=== PATIENT | female | born 1990 | race Caucasian/White ===

== ENCOUNTER 2024-09-10 16:36 | Inpatient (IN) | payer OTHER, SELFPAY ==
--- OUTSIDE RECORDS SUMMARY | 2020-10-27 20:00 | XMS_ITS | Continuity of Care Document ---
Author Organization [facility] Address [address] [facility] [address] [place] [address] Phone Care Team Providers Care Instrumentation Instructor Name Role Phone Eda Abel MD Unavailable Unavailable Advance Directives Directive Yes / No Effective Date File Name No Information Encounters Encounter Description Practice Location Reason(s) For Visit Diagnoses Date Provider Providers Copied on Encounter [facility], [address], [id number], tel:[phone] [facility] Hypermobility syndrome [address] [facility], [address], [place], [id number] , [place]. [phone] [facility], [address] [facility] [address] [place] [address], [id number], tel:[phone] [facility] Pain in unspecified joint [address] [facility], [address], [place], [id number] , [place]. tel:[phone] Family History Family Member Type Diagnosis Age At Onset No Information Payers Payer name Insurance type Covered republican ID Authoriza tion(s) No Information Social History Type Description Quantity Date Captured Comments Sex Female Smoking Status No Information Chief Complaint And Reason For Visit No Information Reason For Referral Reason For Referral No Information History Of Present Illness Encounter Date Complaint History Of Prese nt Illness No Information Functional Status Date Functional Assessmen t No Information Instructions Date Instruction Additional Infor mation No Information Assessments Type Assessment Date No Information Patient Care Teams Name Effective Dates (start - stop) Status Members No Information
--- OUTSIDE RECORDS SUMMARY | 2024-09-10 16:50 | XMS_ITS | Clinical Summary ---
Author Organization [facility] Address [address] [place] [address] Phone Care Team Providers Care Sand Blaster Name Role Phone Temitope Frazier Primary Care Provider + Allergies Active Allergy Reactions Criticality Noted Date Comments Amoxicillin Hives 03/29/2022 Ciprofloxacin Cough,Hives 03/29/2022 Cortisone Hives 04/24/2019 Other Reaction(s): Unknown Gluten Meal Hives 11/16/2023 Patient reports Celiac Disease Hydrocortisone Hives 11/16/2023 Medications apixaban (ELIQUIS) 5 MG tablet Take 5 mg by mouth two times a day Active DULoxetine (CYMBALTA) 60 MG capsule Take 60 mg by mouth two times a day Active budesonide-form oterol (SYMBICORT) 80-4.5 MCG/ACT inhaler Inhale 2 puffs two times a day as needed Rinse mouth with water after use. Do not swallow. Active atorvastatin (LIPITOR) 20 MG tablet Take 20 mg by mouth daily Active empagliflozin (Jardiance) 10 MG tablet Take 10 mg by mouth daily Active metFORMIN (GLUCOPHAGE) 500 MG tablet Take 500 mg by mouth two times a day Active glycopyrrolate (ROBINUL) 2 MG tablet Take 2 mg by mouth every morning Active ziprasidone (GEODON) 80 MG capsule Take 80 mg by mouth two times a day Active modafinil (PROVIGIL) 200 MG tablet Take 400 mg by mouth daily Active Cariprazine HCl (Vraylar) 1.5 MG capsule Take 1.5 mg by mouth every evening Active valACYclovir (VALTREX) 500 MG tablet Take 500 mg by mouth every evening Active SUMAtriptan (IMITREX) 100 MG tablet Take 100 mg by mouth once as needed for migraine Active cyclobenzaprine (FLEXERIL) 10 MG tablet Take 10 mg by mouth three times a day as needed for muscle spasms Active metaxalone (SKELAXIN) 800 MG tablet Take 800 mg by mouth three times a day as needed Active Coenzyme Q10 (Co Q10) 200 MG capsule Take 200 mg by mouth every morning Active Multiple Vitamins-Minera ls (CENTRUM WOMEN PO) Take 1 tablet by mouth every morning Active CALCIUM-VITAMIN D-VITAMIN K PO Take by mouth every morning Active Turmeric (QC TUMERIC COMPLEX PO) Take 1 tablet by mouth every morning Active Turmeric (QC TUMERIC COMPLEX PO) Take 2 tablets by mouth every evening Active folic acid (Folate) 400 MCG tablet Take 400 mcg by mouth two times a day Active PREBIOTIC PRODUCT PO Take 2 capsules by mouth every evening Active Probiotic Product (PROBIOTIC PO) Take 1 capsule by mouth every evening Active MAGNESIUM GLYCINATE PO Take 400 mg by mouth every morning Active Benfotiamine 150 MG capsule Take 300 mg by mouth every evening Active propranolol LA (INDERAL LA) 120 MG 24 hr capsule Take 120 mg by mouth daily Active fenofibrate (TRICOR) 145 MG tablet Take 145 mg by mouth nightly Active Active Problems Problem Noted Date Diagnosed Date Bipolar disorder, unspecified 01/04/2024 Right arm cellulitis 12/15/2023 Social History Tobacco Use Types Packs/Day Years Used Date Smoking Tobacco: Never Smokeless Tobacco: Never Tobacco Cessation:Counseling Given: Not Answered Comments Unknown Sex and Gender Information Value Date Recorded Sex Assigned at Not on file Legal Sex Female 6:53 PM EDT Gender Identity Not on file Sexual Orientation Not on file Last Filed Vital Signs Vital Sign Reading Time Taken Comments Blood Pressure 99/66 01/03/2024 9:19 PM EST Pulse 72 01/03/2024 9:19 PM EST Temperature 37.4 C (99.4 F) 01/03/2024 5:58 PM EST Respiratory Rate 18 01/03/2024 9:19 PM EST Oxygen Saturation 96% 01/03/2024 11:21 PM EST Inhaled Oxygen Concentration - - Weight 96.6 kg (213 lb) 01/03/2024 1:49 PM EST Height 160 cm (5' 3 ) 01/03/2024 1:49 PM EST Body Mass Index 37.73 01/03/2024 1:49 PM EST Plan of Treatment Health Maintenance Due Date Last Done Comments [facility] Topic HIV Screening 1989 [facility] Topic Tdap Vaccine (1 - Tdap) 2008 [facility] Topic Cervical Cancer Screening 2019 [facility] Topic Influenza (Flu) Seasonal (#1) 2024 [facility] Topic Lipid Profile 5 years 11/07/2028 11/08/2023, 11/08/2023 [facility] Topic Shingrix (1 of 2) 2039 [facility] Topic Hepatitis C Screening Completed 11/08/2023 [facility] Topic HIB Vaccines Aged Out No longer eligible based on patient's age to complete this topic [facility] Topic HPV Vaccines Aged Out No longer eligible based on patient's age to complete this topic Insurance [address] [place], [place] [address]O [facility] Advance Directives For more information, please contact: [phone] * Full Code (Latest Code Status on File) Date Activated Date Inactivated Comments 12/15/2023 9:34 AM 12/18/2023 5:50 PM Question Answer Comments Cardiopulmonary Resuscitatio n: for a patient in cardiac or respiratory arrest (Full Code = Attempt Resuscitation, DNR = Do not attempt resuscitation): Full Code Ventilation: for a patient in respiratory distre ss: Intubate and Ventilate Care Teams Sand Blaster Relationship Specialty Start Date End Date Temitope Frazier [address] [place] [id number] PCP - General Internal Medicine 12/14/23
--- OUTSIDE RECORDS SUMMARY | 2024-09-10 16:50 | XMS_ITS | Clinical Summary ---
Author Organization [facility] Address [address] [facility] [address] [place] [address] Phone Care Team Providers Care Marble Cutter Operator Name Role Phone Marcus Rothman Aurelia SENIOR PAYROLL ADMINISTRATOR Unavailable [phone] Temitope Frazier MD Primary Care Provide r Allergies Active Allergy Reactions Criticality Noted Date Comments Amoxicillin Hives 11/16/2023 Ciprofloxacin Hives 11/16/2023 Hydrocortisone Hives 11/16/2023 Medications atorvastatin (LIPITOR) 20 MG tablet Take 20 mg by mouth daily. Active empagliflozin (JARDIANCE) 10 mg tablet Take 10 mg by mouth daily. Active apixaban (ELIQUIS) 5 mg tablet Take 5 mg by mouth 2 (two) times a day. Active fenofibrate (TRICOR) 145 MG tablet Take 145 mg by mouth daily. Active DULoxetine (CYMBALTA) 60 MG capsule Take 60 mg by mouth daily. Active modafiniL (PROVIGIL) 200 MG tablet Take 200 mg by mouth daily. Active glycopyrrolate (ROBINUL) 1 mg tablet Take 2 mg by mouth 3 (three) times a day. Active metFORMIN (GLUCOPHAGE) 500 MG tablet Take 500 mg by mouth 2 (two) times a day with meals. Active ziprasidone (GEODON) 80 MG capsule Take 80 mg by mouth 2 (two) times a day with meals. Active busPIRone (BUSPAR) 5 MG tablet Take 5 mg by mouth 2 (two) times a day. 01/08/2024 Active doxycycline hyclate (VIBRAMYCIN) 100 MG capsule Take 100 mg by mouth daily. 01/13/2024 Active Active Problems No known active problems Social History Tobacco Use Types Packs/Day Years Used Date Smoking Tobacco: Every Day Cigarettes Smokeless Tobacco: Never Tobacco Cessation:Ready to Q uit: Not Asked; Counseling Given: Not Answered Alcohol Use Standard Drinks/Week Comments Yes 0 (1 standard drink = 0.6 oz pur e alcohol) Education Answer Date Recorded Are you interested in more education? Not on paco e 11/16/2023 Are you concerned about learning? Not on file 11/16/2023 No 11/16/2023 No 11/16/2023 Digital Access Answer Date Recorded No 11/16/2023 No 11/16/2023 Reliable internet access at home? Not on file 11/16/2023 Device with a working camera? Not on file Intimate Partner Violence Answer Date R ecorded Are you denied basic needs s uch as food, clothing, or medical care? No 12/23/2023 In the past 12 months have y ou been in a relationship with a person who hurts, threatens, or tries to control you? No 12/23/2023 Are you denied basic needs s uch as food, clothing, or medical care? No 12/23/2023 In the past 12 months have y ou been in a relationship with a person who hurts, threatens, or tries to control you? No 12/23/2023 Comments No Sex and Gender Information Value Date Recorded Sex Assigned at Female 11/18/2023 7:55 AM EDT Legal Sex Female 2:22 PM EDT Gender Identity Female 11/16/2023 2:34 PM EDT Sexual Orientation Bisexual 11/18/2023 7: 55 AM EDT Last Filed Vital Signs Vital Sign Reading Time Taken Comments Blood Pressure 100/64 12/23/2023 8:17 PM EST Pulse 74 12/23/2023 8:17 PM EST Temperature 36.8 C (98.3 F) 12/23/2023 4:54 PM EST Respiratory Rate 15 12/23/2023 8:17 PM EST Oxygen Saturation 99% 12/23/2023 8:17 PM EST Inhaled Oxygen Concentration - - Weight 97.5 kg (215 lb) 11/16/2023 2:39 PM EDT Height 160 cm (5' 3 ) 11/16/2023 2:39 PM EDT Body Mass Index 38.09 11/16/2023 2:39 PM EDT Plan of Treatment Health Maintenance Due Date Last Done Comments Adult Td,Tdap Booster 1989 DEPRESSION SCREENING 2001 SMOKING Hx and SMOKELESS TOBACCO SCREENING 2002 HIV ONE-TIME SCREENING (18-6 5 YEARS) 2007 PNEUMOCOCCAL VACCINES (0-49 years) (1 of 2 - PCV) 2008 PAP SMEAR 2010 COVID-19 VACCINE (1 - 2023-2 5 season) 2023 CREATININE LEVEL 12/22/2024 12/23/2023 SCREENING FOR DIABETES 12/22/2026 4, 11/08/2023 HEPATITIS C SCREENING Completed 11/08/2023 HEPATITIS A VACCINES Aged Out No long er eligible based on patient's age to complete this topic HIB VACCINES Aged Out No longer eligi ble based on patient's age to complete this topic MENINGOCOCCAL VACCINES (ACWY) Aged Out No longer eligible based on patient's age to complete this topic MENINGOCOCCAL VACCINES (B) Aged Out N o longer eligible based on patient's age to complete this topic Medical Devices Not on file Procedures Procedure Name Priority Date/Time Associated Diagnosis Comments BASIC METABOLIC PANEL STAT 12/23/2023 11:37 AM EST from Last 3 Months or Most Recently Relevant to Health Maintenance Results * (ABNORMAL) Basic metabolic panel (12/23/2023 11:37 AM EST) SODIUM 141 136 - 145 mmol/L [facility] CHLORIDE 106 95 - 106 mmol/L [facility] POTASSIUM 4.5 3.5 - 5.2 mmol/L [facility] CO2 20 20 - 31 mmol/L [facility] BUN 16 9 - 23 mg/dL [facility] CREATININE 0.78 0.50 - 1.30 mg/dL [facility] GLUCOSE 114(H) 74 - 106 mg/dL [facility] CALCIUM 9.8 8.7 - 10.4 mg/dL [facility] EGFR 102 >60 mL/min/1.7 3m2 [facility] Comment:Estimated glomerular filtration rate calculated using the CKD-EPI refit equation. ANION GAP 15 3 - 17 mmol/L [facility] Blood 12/23/2023 11:3 7 AM EST 12/23/2023 11:38 AM EST us Glen Oliver MD LAB BLOOD ORDERABLES Final Re sult [facility] [address] [place] [address] from Last 3 Months or Most Recently Relevant to Health Maintenance Insurance [address] [place] [address] EPO [facility] [place] [facility]PO EPO [facility] [place] [facility] [place] [address] [place] [address] [place] [address] [facility]PO EPO [facility] [place] [facility] [place] [facility] PPO EPO [facility] FCO ACO Care Teams Marble Cutter Operator Relationship Specialty Start Date End Date Temitope Frazier MD [address] [place] [address] [email or web address] PCP - General Internal Medicine 01/03/24 Marcus Rothman CNP [address] [place] [address] [email or web address] Wound Ostomy Nurse Nurse Practitioner 01/02/24 Additional Source Comments The information contained in this document represents components of the legal health record. It is not the complete legal health record.[facility]
--- OUTSIDE RECORDS SUMMARY | 2024-09-10 16:50 | XMS_ITS | Clinical Summary ---
Author Organization [facility] Address [address] [place] [address] Care Team Providers Care Steward/Stewardess Night Name Role Phone Jeanie Patrick MD Primary Care Provider [phone] Jeanie Patrick MD Unavailable [phone] Allergies Active Allergy Reactions Criticality Noted Date Comments Amoxicillin Hives 03/29/2022 Ciprofloxacin Hives 11/16/2023 Gluten Other (See Comments) 11/16/2023 Hydrocortisone Hives 11/16/2023 Medications levonorgestrel (MIRENA) 20 MCG/DAY IUD 52,000 mcg by Intrauterine route Active DULoxetine (CYMBALTA) 60 MG capsule Take 60 mg by mouth in the morning and 60 mg before bedtime. Active ziprasidone (GEODON) 80 MG capsule Take 80 mg by mouth in the morning and 80 mg before bedtime. Active Benfotiamine 150 MG CAPS Take 300 mg by mouth Active Turmeric 500 MG CAPS Take 1 tablet by mouth every morning Active CALCIUM-VITAMIN D-VITAMIN K PO Take 1 Units by mouth daily Active Coenzyme Q10 200 MG capsule Take 200 mg by mouth daily Active modafinil (PROVIGIL) 200 MG tablet Take 400 mg by mouth daily Active propranolol (INDERAL LA) 120 MG 24 hr capsule Take 120 mg by mouth daily 05/18/19 24 Active busPIRone (BUSPAR) 5 MG tabletIndications :Bipolar affective disorder, current episode mixed, current episode severity unspecified (HCC),Bipolar affective disorder, remission status unspecified (HCC) TAKE 1 TABLET BY MOUTH EVERY MORNING AND EVERY NIGHT BEFORE BEDTIME 180 tablet 3 05/25/19 25 026 Active apixaban (ELIQUIS) 5 MG po tabletIndications :Factor V Leiden (HCC),History of pulmonary embolus (PE) Take 1 tablet by mouth in the morning and 1 tablet before bedtime. 60 tablet 2 07/31/19 25 025 Active atorvastatin (LIPITOR) 20 MG tabletIndications :Controlled type 2 diabetes mellitus without complication, without long-term current use of insulin (HCC),Dyslipidemi a Take 1 tablet by mouth daily 30 tablet 2 07/31/19 25 025 Active fenofibrate (TRICOR) 145 MG tabletIndications :Dyslipidemia Take 1 tablet by mouth daily 30 tablet 2 07/31/19 25 025 Active folic acid (FOLVITE) 400 MCG tablet Take 1 tablet by mouth daily 30 tablet 2 07/31/19 25 025 Active SUMAtriptan (IMITREX) 100 MG tabletIndications :Migraine without aura and without status migrainosus, not intractable Take 1 tablet by mouth as needed 10 tablet 2 07/31/19 25 025 Active valACYclovir (VALTREX) 500 MG tabletIndications :Herpes simplex infection of genitourinary system Take 1 tablet by mouth daily 30 tablet 2 07/31/19 25 025 Active glycopyrrolate (ROBINUL) 2 MG tabletIndications :Excessive sweating Take 1 tablet by mouth daily 30 tablet 2 08/01/19 025 Active Active Problems Problem Noted Date Diagnosed Date 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/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 Overview (04/15/2024): Diagnosis by rheum in [place] about 2021 Migraine without aura and wi thout status migrainosus, not intractable 04/15/2024 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 Hypersomnia 04/15/2024 Factor V Leiden 01/10/2024 Chronic cough 11/08/2023 Dyslipidemia 11/08/2023 History of pulmonary embolus (PE) 11/08/2023 IUD (intrauterine device) in place 11/08/2023 PCOS (polycystic ovarian syndrome) 11/08/2023 PTSD (post-traumatic stress disorder) 11/08/2023 Bipolar disorder 07/04/2023 Bipolar affective disorder, current episode mixe d 07/03/2023 Celiac disease 07/03/2023 Overview (04/15/2024): Diagnosis by primary care in [place] Fatty (change of) liver, not elsewhere classifie d 07/03/2023 Class 1 obesity due to exces s calories with serious comorbidity and body mass index (BMI) of 34.0 to 34.9 in adult 07/03/2023 STEPHEN (obstructive sleep apnea) 07/03/2023 Anxiety 03/29/2022 Depression 03/29/2022 Controlled type 2 diabetes m ellitus without complication, without long-term current use of insulin 02/14/2020 Resolved Problems Problem Noted Date Diagnosed Date Resolved Date [id number] 5 05/06/2024 Overview (04/09/2024): 30-day care transition program after hospital discharge. Transition Felt Washing Machine Tender: Kendra Angel Off-hours or weekend: please contact the office of Temtiope Norwood MD (PCP) at [phone]. Kendra Kendrick Community Rv Technician [facility] Program Encounters Date Type Department Care Team Description 08/12/2024 Brief Note [facility] [address] [facility] [address] - [address] [place] [address] Delilah Trinidad 08/10/2024 12:00 PM EDT Office Visit [facility] [address] - [address] [place] [address] Bev Colón [facility] Evaluation 08/10/2024 Travel 08/07/2024 [facility] Mobile Follow Up [facility] [address] [place] [address] Checo Monsalve Discharge Disposition: Home 08/07/2024 Tel Enc [facility] [address] [place] [address] Checo Monsalve 08/07/2024 Brief Note [facility] [address] - [address] [place] [address] Richard Rosas LICSW 08/07/[address], [address] [place] [address] Jordanajerowagner Cristin Medication Problem 07/31/2024 1:20 PM EDT Televisit [address], [address] [place] [address] Jeanie Patrick MD Bipolar affective disorder, remission status unspecified (HCC) (Primary Dx); PTSD (post-traumatic stress disorder); Anxiety; Hypersomnia; STEPHEN (obstructive sleep apnea); Excessive sweating 07/30/[address], [address] [place] [address] Alessandro Naik Schedule An Appointment 06/20/2024 Telephone [facility] [address] [place] [address] Jeanie Patrick MD Hospital F/U from Last 3 Months Immunizations Immunization Administration Dates Next Due Influenza Trivalent Preservative Free 0.5 mL 6m+ 11/22/2023 Influenza Virus Quad Presv Free Vacc 6 Mo and Ol елена, IM 11/22/2023 Pneumococcal 20-(prevnar 20) 11/22/2023 Social History Tobacco Use Types Packs/Day Years Used Date Smoking Tobacco: Never Smokeless Tobacco: Never Tobacco Cessation:Counseling Given: Not Answered Alcohol Use Standard Drinks/Week Comments Not Currently 0 (1 standard drink = 0.6 oz pur e alcohol) Comments Unknown Sex and Gender Information Value Date Recorded Sex Assigned at Not on file Legal Sex Female 3:06 PM EST Gender Identity Female 08/10/2024 11:50 AM EDT Sexual Orientation Bisexual 08/10/2024 11 :50 AM EDT Last Filed Vital Signs Vital Sign Reading Time Taken Comments Blood Pressure 107/77 08/10/2024 12:13 PM EDT Pulse 100 08/10/2024 12:13 PM EDT Temperature 36.8 C (98.2 F) 08/10/2024 12:13 PM EDT Respiratory Rate 16 08/10/2024 12:13 PM EDT Oxygen Saturation 99% 08/10/2024 12:13 PM EDT Inhaled Oxygen Concentration - - Weight 87.2 kg (192 lb 3.2 oz) 04/15/2024 3:06 P M EST Height 159.6 cm (5' 2.84 ) 04/15/2024 3:06 PM ES T Body Mass Index 34.23 04/15/2024 3:06 PM EST Plan of Treatment Health Maintenance Due Date Last Done Comments Cervical Cancer Screening 1989 Contraceptive Care Screening 1989 HPV SCREENING 1989 ORAL HEALTH SCREENING 1989 PAP SMEAR 1989 HIV SCREENING 2002 DM COMPLETE FOOT EXAM 2007 DM EYE EXAM 2007 HEALTH CARE PROXY 2007 HEP C SCREEN 2007 LIPID SCREENING 2007 MICROALBUMIN 2007 TETANUS VACCINE (1 - Tdap) 2007 PHYSICAL EXAM 2011 COVID-19 Vaccine (1 - 2023-2 5 season) 2023 A1C 09/13/2024 06/13/2024, 02/2 02/2024, 11/08/2023, Additional history exists INFLUENZA VACCINE (#1) 2024 11/22/2023, 2023 AWQ Questionnaire 08/10/2025 08/10/2024 SDOH Screening 08/10/2025 08/10/2024 ZOSTER VACCINE (1 of 2) 2039 PNEUMOCOCCAL VACCINE SERIES (< 65) Completed 2023 Insurance [facility] Address: [address] [address] Care Teams Steward/Stewardess Night Relationship Specialty Start Date End Date Jeanie Patrick MD [address] [place] [address] PCP - General Family Medicine 04/15/24 Jeanie Patrick MD [address] [place] [address] PCP - Insurance PCP 05/17/24
--- OUTSIDE RECORDS SUMMARY | 2024-09-10 16:50 | XMS_ITS | Clinical Summary ---
Author Organization [facility] Address [address] [place] [address] Phone Care Team Providers Care Escrow Closer Name Role Phone Unavailable Primary Care Provider Unavailabl e Allergies Active Allergy Reactions Criticality Noted Date Comments Amoxicillin 03/29/2022 Ciprofloxacin 03/29/2022 Cortisone 03/29/2022 Medications atorvastatin (Lipitor) 20 mg tablet Lipitor 20 MG Oral Tablet Refills: 0 Active DULoxetine (CYMBALTA) [address] capsule DULoxetine HCl - 60 MG Oral Capsule Delayed Release Particles Refills: 0 Active empagliflozin (Jardiance) 10 mg tablet Jardiance 10 MG Oral Tablet Refills: 0 Active fenofibrate (Tricor) 145 mg tablet Tricor 145 MG Oral Tablet Refills: 0 Active lamoTRIgine (LaMICtal) 150 mg tablet lamoTRIgine 150 MG Oral Tablet Refills: 0 Active magnesium oxide (MAG-OX) 400 mg magnesium tablet Magnesium TABS Refills: 0 Active metFORMIN (GLUCOPHAGE) 500 mg tablet metFORMIN HCl - 500 MG Oral Tablet Refills: 0 Active ziprasidone (GEODON) 80 mg capsule Ziprasidone HCl - 80 MG Oral Capsule Refills: 0 Active amphetamine-dex troamphetamine (ADDERALL) 5 mg tablet TAKE ONE TABLET BY MOUTH EVERY MORNING FOR 20 DAYS 2 Active magnesium glycinate 100 mg tablet Take by mouth. Activ e cyclobenzaprine (FLEXERIL) 10 mg tablet TAKE ONE TABLET BY MOUTH ONE TIME DAILY IF NEEDED FOR MUSCLE SPASMS 30 tablet 2 4 Active SUMAtriptan (IMITREX) 100 mg tablet TAKE 1 TABLET BY MOUTH 1 TIME IF NEEDED FOR MIGRAINE, MAY REPEAT DOSE ONCE IN 2 HOURS IF NO RELIEF. DO NOT EXCEED 2 DOSES IN 24 HOURS 9 tablet 3 4 Active propranolol XL (INNOPRAN XL) 120 mg 24 hr capsule Take 1 capsule (120 mg total) by mouth at bedtime. Do not crush, chew, or split. 90 capsule 3 4 Active Active Problems Problem Noted Date Diagnosed Date Anxiety 03/29/2022 Complicated migraine 03/29/2022 Depression 03/29/2022 Left hand weakness 03/29/2022 Memory loss 03/29/2022 Neck pain 03/29/2022 Sleep apnea 03/29/2022 Medical History Medical History Date Comments Adult celiac disease Migraine Depression Anxiety Memory loss Family History Medical History Relation Name Comments Hypertension Father Relation Name Status Comments Father Social History Tobacco Use Types Packs/Day Years Used Date Smoking Tobacco: Former Cigarettes Smokeless Tobacco: Never Tobacco Cessation:Counseling Given: Not Answered Alcohol Use Standard Drinks/Week Comments Yes 0 (1 standard drink = 0.6 oz pur e alcohol) social alcohol use Comments Unknown Sex and Gender Information Value Date Recorded Sex Assigned at Female 04/11/2022 3:10 PM EST Legal Sex Female 2:29 PM EDT Gender Identity Female 04/11/2022 3:10 PM EST Sexual Orientation Lesbian or Gray 04/11/2022 3: 10 PM EST Obstetrics History Last Filed Vital Signs Vital Sign Reading Time Taken Comments Blood Pressure 98/68 11/10/2022 2:30 PM EDT Pulse 73 11/10/2022 2:30 PM EDT Temperature 36.6 C (97.9 F) 11/10/2022 2:30 PM EDT Respiratory Rate 16 11/10/2022 2:30 PM EDT Oxygen Saturation 97% 11/10/2022 2:30 PM EDT Inhaled Oxygen Concentration - - Weight 103 kg (226 lb) 11/10/2022 2:30 PM EDT Height 160 cm (5' 3 ) 10/08/2021 1:10 PM EDT Body Mass Index 40.03 10/08/2021 1:10 PM EDT Plan of Treatment Health Maintenance Due Date Last Done Comments DTaP,Tdap,and Td Vaccines (1 - Tdap) 2008 Hepatitis B Vaccines (1 of 3 - 19+ 3-dose series) 2008 Cervical Cancer Screening: Pap Smear 2010 Cholesterol Screening (Lipid Panel) 08/23/2021 HIV Screening 08/23/2021 Hepatitis C Screening 08/23/2021 Social Influencers of Health Screening 08/23/2021 COVID-19 Vaccine ( season) 2023 09/26/2021, 12/23/2020, 06/17/2020, Additional history exists Depression Screening 02/14/2024 11/10/2022 Influenza Vaccine (#1) 2024 09/26/2021, 2019 Pneumococcal Vaccine: Pediatrics (0 to 5 Years) and At-Risk Patients (6 to 49 Years) Aged Out 09/26/2021 No longer eligible based on patient's age to complete this topic HIB Vaccines Aged Out No longer eligi ble based on patient's age to complete this topic HPV Vaccines Aged Out No longer eligi ble based on patient's age to complete this topic Hepatitis A Vaccines Aged Out No long er eligible based on patient's age to complete this topic IPV Vaccines Aged Out No longer eligi ble based on patient's age to complete this topic MMR Vaccines Aged Out No longer eligi ble based on patient's age to complete this topic Meningococcal ACWY Vaccine Aged Out N o longer eligible based on patient's age to complete this topic Meningococcal B Vaccine Aged Out No l onger eligible based on patient's age to complete this topic RSV Immunization Patients Under 20 months Aged Out No longer eligible based on patient's age to complete this topic Varicella Vaccines Aged Out No longer eligible based on patient's age to complete this topic Insurance [employer]
[2024-09-10 16:55] VITALS: BP 137/88; PULSE 127; TEMP 36.4; O2SAT 98; BMI 28.5
--- NOTE | 2024-09-10 19:20 | PC.ADMIT ---
Ms. Catrachita Dempsey arrived on the unit via stretcher at 4:50pm from [facility] in [place], [place]. Her diagnoses include Bipolar Disorder, manic, paranoid delusions and disorganization. There is also concern about ongoing cocaine use however her tox screen was negative. Per the nurse to nurse report and ER notes, Catrachita was BIBA on 09/09/24 after her therapist sectioned her following a televisit in which Catrachita became, ?increasingly disorganized (and paranoid) and unable to engage in safety planning or therapeutic intervention.?? When her therapist suggested a higher level of care, Catrachita ended the call and then sent her an email saying she would rather than go to the hospital which prompted the section 12. When she arrived at the [facility] ER she was chemically restrained? with Haldol 5mg and Ativan 2mg for, ?behaviors that jeopardized the physical safety of the patient and staff.? She also received several doses of Ativan 2mg by mouth with the most recent dose just prior to transfer. Medically, she has a past history of kidney stones, adrenal disorder, pulmonary embolism, PCOS, celiac disease, dyslipidemia, fatty liver and hepatomegaly. Allergies include amoxicillin, ciprofloxacin, cortisone and gluten. She has a severe Celiac Disease. She does not smoke but is a former smoker. She drinks approximately once a week up to 4 drinks per use. She denies other substance use. Upon arrival to the unit, she was cooperative with skin/ safety check which was unremarkable. She signed a CV with Titus and immediately signed a 3 Day Notice. Catrachita, who goes by Merlyn, was extremely angry and guarded during the admission assessment, insisting that she should not be here as she is not suicidal and her Therapist, ?betrayed?, her by sectioning her here. She refused to sign any ROIs and refused to even name her PCP.? he continues to adamantly deny SI /HI /AVH but does endorse a history of 1 suicide attempt a year ago in which she, ?had some stuff and someone took them away?, from her. She also endorses a history of AV of voices and noises. She is a former smoker and said she quit 1 year ago. She denies alcohol use and said, ?they lied?, about her drinking.? She said she also smokes cocaine approximately once a week and has since she was last hospitalized one year ago.? She said she uses less than a gram per use.? She alleges that her last hospitalization she was illegally held against her wishes and that it was extremely traumatizing.? Admitted to room 509-2.? The kitchen was notified about her severe celiac disease and they said they would email the poultry raiser for a dietary consult.? She filled out her menu for breakfast tomorrow but wants to wait to complete lunch and dinner until after she meets with the? poultry raiser. Roxane Pearce notified and asked to order a consult to be seen by a hospitalist. Please note that her referral states that she is a Type II diabetic but that was entered in error and she? is not.
[2024-09-10 20:00] VITALS: BP 125/67; PULSE 103; RESP 16; TEMP 37.6; O2SAT 99
[2024-09-11 08:00] VITALS: BP 108/60; PULSE 78; TEMP 36.4; O2SAT 96
[2024-09-11 08:50] LABS: Hemoglobin A1C 208.2264 umol/L; Total Hemoglobin (HGBA1C) 3985.3068 umol/L
[2024-09-11 08:59] LABS: Alanine Aminotransferase 22 U/L (0-31); Albumin Level 4.2 g/dL (3.5-5.0); Alkaline Phosphatase 65 U/L (39-117); Anion Gap 14 (12-20); Aspartate Amino Transferase 20 U/L (5-31); Blood Urea Nitrogen 15 mg/dL (9-16); Calcium 9.7 mg/dL (8.4-10.2); Carbon Dioxide 25 mmol/L (22-29); Chloride 110 mmol/L (96-108); Cholesterol 193 mg/dL (<200); Creatinine Clr Calc Pharmacy 126.9; Estimated Glomerular Filt Rate > 60; HDL Cholesterol 41 mg/dL (>40); Potassium 3.9 mmol/L (3.3-5.1); Sodium 145 mmol/L (135-145); Total Protein 7.1 g/dL (6.5-8.0); Triglycerides 112 mg/dL (<150)
--- NOTE | 2024-09-11 09:08 | P.HPPS_ITS ---
[facility] Date of Service: 09/11/24 Chief Complaint: SI Sources of Information: patient interviewed and chart reviewed HPI Subjective Notes: Whipple Warning, Conditional Voluntary and 3 Day Narrative: 34-year-old female was a direct transfer from [facility] on 09/10/2024. She has history of bipolar disorder, swati, paranoia delusions kidney stones, adrenal disorder, pulmonary embolism, PCOS, celiac disease, dyslipidemia, hepatic steatosis, hepatomegaly, and narcolepsy. Per collateral from nursing, on 09/09/2024, she was brought to the ED via ambulance after her therapist sections her, following a virtual visit, for being disorganized and paranoid and noted she would rather than go to the hospital for higher level care suggested by her therapist. On interview with his provider and the patient's high school social science teacher, patient notes that she was wrongly sectioned by her therapist. She states that she has shared her unpleasant psychiatric inpatient hospitalization experience with her therapist. She was hospitalized between May and June 2024 for 3 weeks due to stroke-like symptoms. However, she read in her record that she was psychiatrically admitted because he would be a good experienced for her. While speaking with a therapist whom she has he has been seen twice weekly for the past few weeks, she determine the the patient needed higher level of care in the hospital. Therefore, the patient told her therapist that she would rather than be admitted again. Her therapist notified EMS and patient was brought to the ED. She was then transferred to . She denies endorsing SI/HI/AH/VH to her therapist; she currently denies those symptoms. She states that she is anxious but denies depression. She reports poor sleep related to her history of narcolepsy; her sleep average between 2-24 hours. She notes that she smokes 1 g of cocaine weekly. She denies other illicit drug use. She denies smoking cigarettes or drinking alcohol. She notes that she has been taking her medications as prescribed. Patient seen at 11:25 on 09/11/2024. Past Psychiatric History: bipolar disorder, swati, paranoia delusions h/o IPLOC x 1 between May and June 2024 h/o SA x 1 in 12/2023 (would not elaborate) Medical Evaluation Reviewed: Yes [facility] Family History: Denies family h/o mental illness Social History: Lives alone No children Graduated high school Parents and siblings noting good relationship with patient Has two current legal cases..... [address] hearing scheduled in mid September 2024 (does not want to elaborate) Unemployed. Last employed in 12/16/2023 (terminated due to narcolepsy) Substance History: Smokes 1 g cocaine weekly Denies nicotine use or alcohol intake Trauma History: Reports history of trauma (does not want to elaborate) Diagnostics Vital Signs (24Hr): Vital Signs - 24 hr 09/10/24 16:55 09/10/24 20:00 Temperature 97.6 F 99.7 F Pulse Rate 127 H 103 H Respiratory Rate 16 Blood Pressure 137/88 125/67 Pulse Oximetry 98 99 Oxygen Delivery Method Room Air Room Air BMI result Body Mass Index 28.5 Labs 09/11/24 07:47 Labs: Laboratory Results - last 48 hr 09/11/24 09/11/24 07:47 08:25 Sodium 145 Potassium 3.9 Chloride 110 H Carbon Dioxide 25 Anion Gap 14 BUN 15 Creatinine 0.66 Estim Creat Clear Calc 126.9 Estimated GFR > 60 Random Glucose 122 H Estimat Average Glucose 151 Hemoglobin A1c % 6.9 H Calcium 9.7 Total Bilirubin 0.5 AST 20 ALT 22 Alkaline Phosphatase 65 Total Protein 7.1 Albumin 4.2 Triglycerides 112 Cholesterol 193 LDL Cholesterol, Calc 130 H HDL Cholesterol 41 Meds/Allergies Meds Home Medications ?Medication ?Instructions ?Recorded ?Confirmed ?Type duloxetine 60 mg capsule,delayed 60 mg PO DAILY 09/10/24 History release folic acid 400 mcg tablet 400 mcg PO DAILY 09/10/24 History glycopyrrolate 2 mg tablet 2 mg PO DAILY 09/10/2408/14 History lurasidone 40 mg tablet 40 mg PO DAILY 09/10/2408/14 History modafinil 200 mg tablet 400 mg PO QAM 09/10/2409/10 History saliva stimulant comb. no.3 mucous membrane PRN Dry Mo uth 09/10/24 History (Biotene Moisturizing Mouth mucosal spray) ziprasidone HCl 80 mg capsule 80 mg PO BID 09/10/24 History valacyclovir 500 mg tablet 500 mg PO DAILY 09/11/24 History Allergies Allergies Allergy/AdvReac Type Severity Reaction Status Date / Time amoxicillin Allergy Rash Verified 09/10/24 17:33 ciprofloxacin Allergy Anaphylaxis Verified 09/10/24 17:33 cortisone Allergy Rash Verified 09/10/24 17:33 gluten Allergy Anaphylaxis Verified 09/10/24 17:33 Mental Status Exam Mental Status Exam Narrative: Appearance: Casually dressed, adequate hygiene Behavior: Calm and cooperative throughout the interview. Eye contact is appropriate, and there are no signs of psychomotor agitation or retardation Speech: Normal volume and prosody Thought process: Logical and goal-directed Thought content: Future oriented no self-harming thoughts Mood: Irritable Affect: Constricted SI:denies HI:denies VH/AH:none Delusions: None Insight/judgment: Impaired insight and judgment Memory/cog: Alert, oriented x 4. grossly intact to conversational testing Assessment & Plan Assessment & Plan (1) Bipolar disorder: Status: Acute Code(s): F31.9 - Bipolar disorder, unspecified Plan 34-year-old female was a direct transfer from [facility] on 09/10/2024. She has history of bipolar disorder, swati, paranoia delusions kidney stones, adrenal disorder, pulmonary embolism, PCOS, celiac disease, dyslipidemia, hepatic steatosis, hepatomegaly, and narcolepsy. Per collateral from nursing, on 09/09/2024, she was brought to the ED via ambulance after her therapist sections her, following a virtual visit, for being disorganized and paranoid and noted she would rather than go to the hospital for higher level care suggested by her therapist. On interview with his provider and the patient's high school social science teacher, patient notes that she was wrongly sectioned by her therapist. She states that she has shared her unpleasant psychiatric inpatient hospitalization experience with her therapist. She was hospitalized between May and June 2024 for 3 weeks due to stroke-like symptoms. However, she read in her record that she was psychiatrically admitted because he would be a good experienced for her. While speaking with a therapist whom she has he has been seen twice weekly for the past few weeks, she determine the the patient needed higher level of care in the hospital. Therefore, the patient told her therapist that she would rather than be admitted again. Her therapist notified EMS and patient was brought to the ED. She was then transferred to . She denies endorsing SI/HI/AH/VH to her therapist; she currently denies those symptoms. She states that she is anxious but denies depression. She reports poor sleep related to her history of narcolepsy; her sleep average between 2-24 hours. She notes that she smokes 1 g of cocaine weekly. She denies other illicit drug use. She denies smoking cigarettes or drinking alcohol. She notes that she has been taking her medications as prescribed. Formulation/Clinical reasoning: H/o bipolar disorder: The patient's sectioned by her therapist due to being disorganized and paranoid and stating she would rather than be admitted to higher level of care. She denies endorsing SI/HI/AH/VH to a therapist and currently denies dose symptoms. She is currently anxious but not depressed. She states that she has been compliant with her medications. Will continue current home medications. Will continue to monitor patient and make changes to her medication regimen as needed. Plan Admit to M5. CV 15 minutes check. Diagnostics as needed. Collateral contact. Continue remainder of regime. Encouraged full milieu. Discharge planning. Patient educated on: medication risk/benefits and therapeutic strategies Reason for continued inpatient stay Substantial Risk for: harm to self and rapid decompensation Statement Statement: I have reviewed the history and physical and performed a pertinent examination on my patient. No changes have occurred unless specified. If the History and Physical was not performed prior to admission, the Hospitalist's service will be consulted for completing the admission physical. Time Spent With Patient Time: Total time managing care of this patient today ____ minutes.
[2024-09-11 09:15] LABS: Free T4 (Free Thyroxine) 1.03 ng/dL (0.71-1.85); Thyroid Stimulating Hormone 2.04 uIU/mL (0.32-4.0)
--- NOTE | 2024-09-11 11:33 | HO.PM.IMCN ---
History of Present Illness Data of Consult Service Date: 09/11/24 Primary Care Provider: Unknown Physician HPI Reason for consult: Medical H&P 34-year-old female with a past medical history of bipolar disorder, celiac disease, type 2 diabetes without complication, depression, dyslipidemia, hepatic steatosis, history of PE 11/08/2023, optic nerve cupping of both eyes, PCOS, and PTSD, presented to a [facility] on a section 12 after a telehealth visit with her psychiatrist who had concerns regarding lability, and disorganized thoughts. She is admitted to inpatient psych for further care. Denies any medical concerns. Does not know if she takes any medications or past medical history, she reports that information is in her phone. She denies any shortness of breath, chest pain, dizziness, lightheadedness, abdominal pain or any other concerning symptoms. EKG demonstrated normal sinus rhythm, CBC and BMP unremarkable. Review of Systems Review of Systems: Denies any shortness of breath, chest pain, dizziness, lightheadedness, abdominal pain or discomfort, nausea vomiting or diarrhea PMFSH Social History Household Members: None Housing: Apartment Do you presently have visiting nurse or other home services: No Patient Tobacco Use Status: Former Tobacco user Years Smoked: 10 Smoked in Last 30 Days: No Patient Interested in Nicotine Replacement: No Second Hand Smoke Exposure: No Currently Displaying Signs/Symptoms of Drug Intoxication Withdrawal: No Do you feel safe in your current relationship?: No Current Relationship Is there a partner from a previous relationship who is making you feel unsafe now?: No Are you made to feel afraid or neglected: No Advance Directives: No Advance Directives Information Provided: No Do you have thoughts of harming others: None Do you have a plan to hurt others: No Plan Recently lost weight without trying: No Eating poorly because of decreased appetite: No Patient : No : No Poor oral hygiene: No Meds Allergies Allergy/AdvReac Type Severity Reaction Status Date / Time amoxicillin Allergy Rash Verified 09/10/24 17:33 ciprofloxacin Allergy Anaphylaxis Verified 09/10/24 17:33 cortisone Allergy Rash Verified 09/10/24 17:33 gluten Allergy Anaphylaxis Verified 09/10/24 17:33 Active Medications: Current Medications Acetaminophen (Acetaminophen 325 Mg Tablet) 650 mg PO Q6H PRN PRN Reason: Headache/Pain, Scale 1-10 Al Hydroxide/Mg Hydroxide (Magnesium Hydrox/Alum Hydrox 30 Ml Oral.Susp) 30 ml PO Q6H PRN PRN Reason: Heartburn/Nausea Duloxetine HCl (Duloxetine Hcl 60 Mg Capsule.Dr) 60 mg PO DAILY [facility] Last Admin: 09/11/24 10:06 Dose: 60 mg Folic Acid (Folic Acid 1 Mg Tablet) 0.5 mg PO DAILY [facility] Glycopyrrolate (Glycopyrrolate 1 Mg Tablet) 2 mg PO DAILY [facility] Hydroxyzine HCl (Hydroxyzine Hcl 50 Mg Tablet) 50 mg PO Q6H PRN PRN Reason: mild anxiety Lurasidone HCl (Lurasidone Hcl 40 Mg Tablet) 40 mg PO DAILY [facility] Last Admin: 09/11/24 10:06 Dose: 40 mg Magnesium Hydroxide (Milk Of Magnesia 30 Ml Oral.Susp) 30 ml PO DAILY PRN PRN Reason: Constipation Modafinil (Modafinil 100 Mg Tablet) 400 mg PO DAILY [facility] Last Admin: 09/11/24 10:06 Dose: 400 mg Nicotine Polacrilex (Nicotine Polacrilex 2 Mg Gum) 2 mg BUCCAL Q2H PRN PRN Reason: Nicotine Cravings Olanzapine (Olanzapine 5 Mg Tablet) 5 mg PO BID PRN PRN Reason: agitation Last Admin: 09/10/24 21:38 Dose: 5 mg Trazodone HCl (Trazodone Hcl 50 Mg Tablet) 50 mg PO BEDTIME MRX1 PRN PRN Reason: Insomnia Ziprasidone (Ziprasidone 80 Mg Capsule) 80 mg PO BID [facility] Last Admin: 09/11/24 10:05 Dose: 80 mg Home Medications ?Medication ?Instructions ?Recorded ?Confirmed ?Last Taken ?Type duloxetine 60 mg capsule,delayed 60 mg PO DAILY 09/10/24 09/10/24 Unknown History release folic acid 400 mcg tablet 400 mcg PO DAILY 09/10/24 09/10/24 Unknown History glycopyrrolate 2 mg tablet 2 mg PO DAILY 09/10/24 09/10/24 Unknown History lurasidone 40 mg tablet 40 mg PO DAILY 09/10/24 09/10/24 Unknown History modafinil 200 mg tablet 400 mg PO QAM 09/10/24 09/10/24 Unknown History saliva stimulant comb. no.3 mucous membrane PRN Dry Mouth 09/10/24 Unknown History (Biotene Moisturizing Mouth mucosal spray) ziprasidone HCl 80 mg capsule 80 mg PO BID 09/10/24 09/10/24 Unknown History valacyclovir 500 mg tablet 500 mg PO DAILY 09/11/24 09/11/24 Unknown History Physical Exam Vital Signs and Narrative: Vital Signs: Last Vital Signs Temp 99.7 F 09/10/24 20:00 Pulse 103 H 09/10/24 20:00 Resp 16 09/10/24 20:00 BP 125/67 09/10/24 20:00 Pulse Ox 99 09/10/24 20:00 O2 Del Method Room Air 09/10/24 20:00 BMI result Body Mass Index 28.5 Alert and oriented, Flat affect Neuro: CN II-X11 intact, no deficits, visual acuity intact EYES: PERRLA, EOM intact ENT: Hearing intact, lips moist Cardiac: S1 S2 RRR, No ectopy Pulmonary: lungs clear to auscultation, No increased WOB. Abdominal: BS active in all 4 quadrants, no guarding or tenderness MSK: Strength 5/5 upper and lower extremities : Deferred Extremities: No edema in lower extremities Psych: Quiet, flat affect. Skin: Warm and dry, Intact Results Labs 09/11/24 07:47 Labs: Laboratory Results - last 24 hr 09/11/24 09/11/24 07:47 08:25 Anion Gap 14 Estim Creat Clear Calc 126.9 Estimated GFR > 60 Random Glucose 122 H Estimat Average Glucose 151 Hemoglobin A1c % 6.9 H Calcium 9.7 Total Bilirubin 0.5 AST 20 ALT 22 Alkaline Phosphatase 65 Total Protein 7.1 Albumin 4.2 Triglycerides 112 Cholesterol 193 LDL Cholesterol, Calc 130 H HDL Cholesterol 41 TSH 2.04 Free T4 1.03 Assessment and Plan (1) Pulmonary embolism: Status: Acute (2) Factor 5 Leiden mutation, heterozygous: Status: Acute Plan Bipolar disorder with swati and psychotic features Treatment per psychiatric team Type 2 diabetes Continue metformin 500 mg b.i.d. Diabetes well controlled, A1c 6.9. Hyperlipidemia Continue atorvastatin and fenofibrate LDL 130. History of pulmonary embolism/Factor 5 Leiden Continue apixaban 5 mg b.i.d. Diagnosed with PE 11/06/24 Thank you for allowing me to participate in the care of this patient. Signing off at this time. Please reconsult of any acute concerns or issues arise
--- NOTE | 2024-09-11 11:42 | MHC.CLN ---
NUTRITION CONSULT FOR FOOD CHOICES WITH CELIAC DISEASE. PATIENT DESCRIBED REQUIRING A SEPARATE AREA FOR FOOD PREP. I ADVISED THAT WE DID NOT HAVE A SEPARATE KITCHEN AND SHE STATED SHE WANTED TO LEAVE FACILITY. NURSE PRESENT FOR REMAINDER OF VISIT PER RD REQUEST. PATIENT COMPLETED LUNCH MENU WITH RD PRESENT. WOULD NOT COMPLETE DINNER MENU. DISCUSSED GLUTEN FREE PRODUCTS THAT DINING SERVICES SOURCES ELSEWHERE. GLUTEN FREE BREAD, MUFFIN AND COOKIE AVAILABLE. LOADING SHOVEL OILER OF PATIENT DINING SERVICES AWARE OF PATIENT REQUESTS.
--- NOTE | 2024-09-11 18:03 | PC.NURSE ---
In bed sleeping at change of shift. She refused to complete menus for lunch or dinner until she saw the safety investigator to discuss menu options. The safety investigator did meet with her around 10:45 and found her to be guarded and resistant to elaborating on medical conditions, allergies, etc. She did eventually place an order for lunch but refused to order dinner until she saw what her lunch looked like. She only ate about 10% of lunch. She also seems to be fixated on gluten being in many foods in which it is not such as tuna, peanut butter, jelly, all salad dressings to name a few items and presented as paranoid and suspicious. She also continues to deny SI /HI /AVH. She did request to have her cell phone charged and also requested to use it to contact her bank to straighten out some problem with them and to also pay her rent during business hours tomorrow. T/W emailed her provider (Steve Rodrigues) to pass this request on to him for tomorrow. Med compliant. Pharmacy contacted to verify her dose and frequency of duloxetine and although it was 60mg BID in the past, her most frequent refill was for 60mg once a day and that is what is prescribed for her here. She did request and receive hydroxyzine prn anxiety x 1 with some effect. She requested Ativan but her provider did not order it for her. He did officially diagnose her with NIDDM and said her A1C was above normal range, and she is on oral medications for this.
[2024-09-11 20:00] VITALS: BP 120/63; PULSE 93; RESP 16; TEMP 36.2; O2SAT 96
--- NOTE | 2024-09-12 09:14 | HO.PSYCHPN ---
Subjective Subjective Date of Service: 09/12/24 Reason For Visit: SI Subjective Notes: Conditional Voluntary Interim History: Patient notes that she feels good. Sleeping well. Taking her medications and attended a group yesterday. She denies SI/HI/AH/VH. She denies anxiety or depression. Wants to be discharged tomorrow to follow up with her op psychiatrist. Medication Compliance: Yes Side effects from medications: No Attending Groups: Intermittent Review of Systems Acute medical concerns: No Mental Status Exam Mental Status Exam Narrative: Appearance: Casually dressed, adequate hygiene Behavior: Calm and cooperative throughout the interview. Eye contact is appropriate, and there are no signs of psychomotor agitation or retardation Speech: Normal volume and prosody Thought process: Logical and goal-directed Thought content: Future oriented no self-harming thoughts Mood: Calm Affect: Constricted SI:denies HI:denies VH/AH:none Delusions: None Insight/judgment: Impaired insight and judgment Memory/cog: Alert, oriented x 4. grossly intact to conversational testing Diagnostics Vital Signs (24Hr): Vital Signs - 24 hr 09/11/24 20:00 Temperature 97.2 F Pulse Rate 93 Respiratory Rate 16 Blood Pressure 120/63 Pulse Oximetry 96 Oxygen Delivery Method Room Air BMI result Body Mass Index 28.5 Labs 09/11/24 07:47 Labs: Laboratory Results - last 48 hr 09/11/24 09/11/24 07:47 08:25 Sodium 145 Potassium 3.9 Chloride 110 H Carbon Dioxide 25 Anion Gap 14 BUN 15 Creatinine 0.66 Estim Creat Clear Calc 126.9 Estimated GFR > 60 Random Glucose 122 H Estimat Average Glucose 151 Hemoglobin A1c % 6.9 H Calcium 9.7 Total Bilirubin 0.5 AST 20 ALT 22 Alkaline Phosphatase 65 Total Protein 7.1 Albumin 4.2 Triglycerides 112 Cholesterol 193 LDL Cholesterol, Calc 130 H HDL Cholesterol 41 TSH 2.04 Free T4 1.03 Medications Medications Current Medications Acetaminophen (Acetaminophen 325 Mg Tablet) 650 mg PO Q6H PRN PRN Reason: Headache/Pain, Scale 1-10 Al Hydroxide/Mg Hydroxide (Magnesium Hydrox/Alum Hydrox 30 Ml Oral.Susp) 30 ml PO Q6H PRN PRN Reason: Heartburn/Nausea Apixaban (Apixaban 5 Mg Tablet) 5 mg PO BID [facility] Last Admin: 09/11/24 21:11 Dose: Not Given Atorvastatin Calcium (Atorvastatin Calcium 20 Mg Tablet) 20 mg PO BEDTIME [facility] Last Admin: 09/11/24 21:09 Dose: 20 mg Duloxetine HCl (Duloxetine Hcl 60 Mg Capsule.Dr) 60 mg PO DAILY [facility] Last Admin: 09/11/24 10:06 Dose: 60 mg Fenofibrate (Fenofibrate 160 Mg Tablet) 145 mg PO DAILY [facility] Folic Acid (Folic Acid 1 Mg Tablet) 0.5 mg PO DAILY [facility] Last Admin: 09/11/24 10:00 Dose: 0.5 mg Glycopyrrolate (Glycopyrrolate 1 Mg Tablet) 2 mg PO DAILY [facility] Last Admin: 09/11/24 10:00 Dose: 2 mg Hydroxyzine HCl (Hydroxyzine Hcl 50 Mg Tablet) 50 mg PO Q6H PRN PRN Reason: mild anxiety Lurasidone HCl (Lurasidone Hcl 40 Mg Tablet) 40 mg PO DAILY [facility] Last Admin: 09/11/24 10:06 Dose: 40 mg Magnesium Hydroxide (Milk Of Magnesia 30 Ml Oral.Susp) 30 ml PO DAILY PRN PRN Reason: Constipation Magnesium Oxide (Magnesium Oxide 400 Mg Tablet) 400 mg PO DAILY [facility] Metformin HCl (Metformin Hcl 500 Mg Tablet) 500 mg PO BIDWM [facility] Last Admin: 09/11/24 16:59 Dose: 500 mg Modafinil (Modafinil 100 Mg Tablet) 400 mg PO DAILY [facility] Last Admin: 09/11/24 10:00 Dose: Not Given Nicotine Polacrilex (Nicotine Polacrilex 2 Mg Gum) 2 mg BUCCAL Q2H PRN PRN Reason: Nicotine Cravings Olanzapine (Olanzapine 5 Mg Tablet) 5 mg PO BID PRN PRN Reason: agitation Last Admin: 09/11/24 21:09 Dose: 5 mg Trazodone HCl (Trazodone Hcl 50 Mg Tablet) 50 mg PO BEDTIME MRX1 PRN PRN Reason: Insomnia Ziprasidone (Ziprasidone 80 Mg Capsule) 80 mg PO BID [facility] Last Admin: 09/11/24 21:09 Dose: 80 mg Allergies Allergies Allergy/AdvReac Type Severity Reaction Status Date / Time amoxicillin Allergy Rash Verified 09/10/24 17:33 ciprofloxacin Allergy Anaphylaxis Verified 09/10/24 17:33 cortisone Allergy Rash Verified 09/10/24 17:33 gluten Allergy Anaphylaxis Verified 09/10/24 17:33 Assessment & Plan Assessment & Plan (1) Bipolar disorder: Status: Acute Code(s): F31.9 - Bipolar disorder, unspecified Plan 34-year-old female was a direct transfer from [facility] on 09/10/2024. She has history of bipolar disorder, swati, paranoia delusions kidney stones, adrenal disorder, pulmonary embolism, PCOS, celiac disease, dyslipidemia, hepatic steatosis, hepatomegaly, and narcolepsy. Per collateral from nursing, on 09/09/2024, she was brought to the ED via ambulance after her therapist sections her, following a virtual visit, for being disorganized and paranoid and noted she would rather than go to the hospital for higher level care suggested by her therapist. On interview with his provider and the patient's rn social services, patient notes that she was wrongly sectioned by her therapist. She states that she has shared her unpleasant psychiatric inpatient hospitalization experience with her therapist. She was hospitalized between May and June 2024 for 3 weeks due to stroke-like symptoms. However, she read in her record that she was psychiatrically admitted because he would be a good experienced for her. While speaking with a therapist whom she has he has been seen twice weekly for the past few weeks, she determine the the patient needed higher level of care in the hospital. Therefore, the patient told her therapist that she would rather than be admitted again. Her therapist notified EMS and patient was brought to the ED. She was then transferred to . She denies endorsing SI/HI/AH/VH to her therapist; she currently denies those symptoms. She states that she is anxious but denies depression. She reports poor sleep related to her history of narcolepsy; her sleep average between 2-24 hours. She notes that she smokes 1 g of cocaine weekly. She denies other illicit drug use. She denies smoking cigarettes or drinking alcohol. She notes that she has been taking her medications as prescribed. Formulation/Clinical reasoning: H/o bipolar disorder: The patient's sectioned by her therapist due to being disorganized and paranoid and stating she would rather than be admitted to higher level of care. She denies endorsing SI/HI/AH/VH to a therapist and currently denies dose symptoms. She is currently anxious but not depressed. She states that she has been compliant with her medications. Will continue current home medications. Will continue to monitor patient and make changes to her medication regimen as needed. 09/12: Continue current treatment regimen. Plan Admit to M5. CV 15 minutes check. Diagnostics as needed. Collateral contact. Continue remainder of regime. Encouraged full milieu. Discharge planning. Patient educated on: therapeutic strategies Reason for continued inpatient stay Substantial Risk for: rapid decompensation Time Spent With Patient Time: Total time managing care of this patient today ____ minutes.
[2024-09-12 09:25] VITALS: BP 126/77; PULSE 84; RESP 18; TEMP 36.4; O2SAT 98
[2024-09-13 08:00] VITALS: BP 99/63; PULSE 81; RESP 16; TEMP 35.6; O2SAT 97
--- NOTE | 2024-09-13 11:06 | P.PNPSI_ITS ---
Subjective Subjective Date of Service: 09/13/24 Reason For Visit: SI Interim History: met with patient; discussed with team promotion writer meeting pt for first time; primary team already decided to discharge her today. Pt continues to deny any SI at all and that therapist fully misunderstood her. She continues to have AH but wants to work out her psychiatric medications w/ her outpt provider, feeling traumatized by being forced inpatient. Discussed pt's home meds of metformin and atorvastatin; she's been off both for several months, but reviewed hbA1C and LDL (which is only mildly elevated) and pt wants to continue with both (both of which were restarted during this admission). Mental Status Exam Mental Status Exam Narrative: Appearance: Casually dressed, adequate hygiene Behavior: Organized in speech/behavior and in good behavioral control; cooperative throughout the interview. Eye contact is appropriate, and there are no signs of psychomotor agitation or retardation Speech: Normal volume and prosody Thought process: Logical and goal-directed Thought content: Future oriented no self-harming thoughts; on treatment Mood: anxious Affect: Constricted SI:denies HI:denies VH/AH:intermittent AH (which is chronic) Delusions: None Insight/judgment: fair and adequate Diagnostics Vital Signs (24Hr): Vital Signs - 24 hr 09/13/24 08:00 Temperature 96.1 F L Pulse Rate 81 Respiratory Rate 16 Blood Pressure 99/63 Pulse Oximetry 97 BMI result Body Mass Index 28.5 Labs 09/11/24 07:47 Medications Medications Current Medications Acetaminophen (Acetaminophen 325 Mg Tablet) 650 mg PO Q6H PRN PRN Reason: Headache/Pain, Scale 1-10 Al Hydroxide/Mg Hydroxide (Magnesium Hydrox/Alum Hydrox 30 Ml Oral.Susp) 30 ml PO Q6H PRN PRN Reason: Heartburn/Nausea Apixaban (Apixaban 5 Mg Tablet) 5 mg PO BID [facility] Last Admin: 09/13/24 09:18 Dose: Not Given Atorvastatin Calcium (Atorvastatin Calcium 20 Mg Tablet) 20 mg PO BEDTIME [facility] Last Admin: 09/12/24 21:40 Dose: 20 mg Duloxetine HCl (Duloxetine Hcl 60 Mg Capsule.) 60 mg PO DAILY [facility] Last Admin: 09/13/24 09:14 Dose: 60 mg Fenofibrate (Fenofibrate 160 Mg Tablet) 160 mg PO DAILY [facility] Last Admin: 09/13/24 09:15 Dose: 160 mg Folic Acid (Folic Acid 1 Mg Tablet) 0.5 mg PO DAILY [facility] Last Admin: 09/13/24 09:15 Dose: 0.5 mg Glycopyrrolate (Glycopyrrolate 1 Mg Tablet) 2 mg PO DAILY [facility] Last Admin: 09/13/24 09:15 Dose: 2 mg Hydroxyzine HCl (Hydroxyzine Hcl 50 Mg Tablet) 50 mg PO Q6H PRN PRN Reason: mild anxiety Last Admin: 09/13/24 09:14 Dose: 50 mg Lurasidone HCl (Lurasidone Hcl 40 Mg Tablet) 40 mg PO DAILY [facility] Last Admin: 09/13/24 09:14 Dose: 40 mg Magnesium Hydroxide (Milk Of Magnesia 30 Ml Oral.Susp) 30 ml PO DAILY PRN PRN Reason: Constipation Magnesium Oxide (Magnesium Oxide 400 Mg Tablet) 400 mg PO DAILY [facility] Last Admin: 09/13/24 09:14 Dose: 400 mg Metformin HCl (Metformin Hcl 500 Mg Tablet) 500 mg PO BIDWM [facility] Last Admin: 09/13/24 09:14 Dose: 500 mg Modafinil (Modafinil 100 Mg Tablet) 400 mg PO DAILY [facility] Last Admin: 09/13/24 09:14 Dose: 400 mg Nicotine Polacrilex (Nicotine Polacrilex 2 Mg Gum) 2 mg BUCCAL Q2H PRN PRN Reason: Nicotine Cravings Olanzapine (Olanzapine 5 Mg Tablet) 5 mg PO BID PRN PRN Reason: agitation Last Admin: 09/12/24 15:05 Dose: 5 mg Trazodone HCl (Trazodone Hcl 50 Mg Tablet) 50 mg PO BEDTIME MRX1 PRN PRN Reason: Insomnia Ziprasidone (Ziprasidone 80 Mg Capsule) 80 mg PO BID [facility] Last Admin: 09/13/24 09:15 Dose: 80 mg Allergies Allergies Allergy/AdvReac Type Severity Reaction Status Date / Time amoxicillin Allergy Rash Verified 09/10/24 17:33 ciprofloxacin Allergy Anaphylaxis Verified 09/10/24 17:33 cortisone Allergy Rash Verified 09/10/24 17:33 gluten Allergy Anaphylaxis Verified 09/10/24 17:33 Assessment & Plan Assessment & Plan (1) Bipolar disorder: Status: Acute Code(s): F31.9 - Bipolar disorder, unspecified Plan 34-year-old female was a direct transfer from [facility] on 09/10/2024. She has history of bipolar disorder, swati, paranoia delusions kidney stones, adrenal disorder, pulmonary embolism, PCOS, celiac disease, dyslipidemia, hepatic steatosis, hepatomegaly, and narcolepsy. Per collateral from nursing, on 09/09/2024, she was brought to the ED via ambulance after her therapist sections her, following a virtual visit, for being disorganized and paranoid and noted she would rather than go to the hospital for higher level care suggested by her therapist. On interview with his provider and the patient's social services analyst, patient notes that she was wrongly sectioned by her therapist. She states that she has shared her unpleasant psychiatric inpatient hospitalization experience with her therapist. She was hospitalized between May and June 2024 for 3 weeks due to stroke-like symptoms. However, she read in her record that she was psychiatrically admitted because he would be a good experienced for her. While speaking with a therapist whom she has he has been seen twice weekly for the past few weeks, she determine the the patient needed higher level of care in the hospital. Therefore, the patient told her therapist that she would rather than be admitted again. Her therapist notified EMS and patient was brought to the ED. She was then transferred to . She denies endorsing SI/HI/AH/VH to her therapist; she currently denies those symptoms. She states that she is anxious but denies depression. She reports poor sleep related to her history of narcolepsy; her sleep average between 2-24 hours. She notes that she smokes 1 g of cocaine weekly. She denies other illicit drug use. She denies smoking cigarettes or drinking alcohol. She notes that she has been taking her medications as prescribed. Formulation/Clinical reasoning: H/o bipolar disorder: The patient's sectioned by her therapist due to being disorganized and paranoid and stating she would rather than be admitted to higher level of care. She denies endorsing SI/HI/AH/VH to a therapist and currently denies dose symptoms. She is currently anxious but not depressed. She states that she has been compliant with her medications. Will continue current home medications. Will continue to monitor patient and make changes to her medication regimen as needed. 09/12: Continue current treatment regimen. 09/13 promotion writer meeting pt for first time; primary team already decided to discharge her today. Pt continues to deny any SI at all and that therapist fully misunderstood her. She continues to have AH and promotion writer offered to work w/ her on unit if she wants to remain, but she wants to discharge and to work out her psychiatric medications w/ her outpt provider, feeling traumatized by being forced inpatient. Discussed pt's home meds of metformin and atorvastatin; she's been off both for several months, but reviewed hbA1C and LDL (which is only mildly elevated) and pt wants to continue with both (both of which were restarted during this admission). Relapsed with crack cocaine but trying to cut back down, now at 1/week; she does not want any help with substance abuse including programs or MAT 3 day notice due primary team communicated to promotion writer plan to dc patient, that she is at baseline and not in imminent risk of harm to self or others and appropriate to return to the community for treatment. promotion writer concurs and pt's request for DC honored. Plan Admit to M5. 3 day 15 minutes check. Diagnostics as needed. Collateral contact. Continue remainder of regime. Encouraged full milieu. Discharge planning. Patient educated on: diagnosis, medication risk/benefits, substance abuse, therapeutic strategies and medical condition Informed Consent: understands Reason for continued inpatient stay Substantial Risk for: stable for discharge Time Spent With Patient Time: Total time managing care of this patient today ____ minutes.
--- NOTE | 2024-10-16 17:31 | PM.PSYDC ---
DS: Providers Provider Date of Service: 09/13/24 Date of admission: 09/10/24 16:36 Date of discharge: 09/13/24 Primary care physician: Unknown Physician Admitting clinician: Steve Rodrigues Consults: 09/10/24 17:37 Consult to Hospitalist Routine Comment: Consulting Provider: [facility] [place] Hospitalists Reason For Exam: New external admit, H&P Attending physician on discharge: Charly Schneider DS: Diagnosis Discharge Diagnosis (1) Bipolar disorder: Status: Acute DS: Medications Discharge Medications Home Medications: Home Medications ?Medication ?Instructions ?Recorded ?Confirmed duloxetine 60 mg capsule,delayed 60 mg PO DAILY 09/10/24 09/10/24 release folic acid 400 mcg tablet 400 mcg PO DAILY 09/10/24 09/10/24 glycopyrrolate 2 mg tablet 2 mg PO DAILY 09/10/24 09/10/24 lurasidone 40 mg tablet 40 mg PO DAILY 09/10/24 09/10/24 saliva stimulant comb. no.3 mucous membrane PRN Dry Mouth 09/10/24 (Biotene Moisturizing Mouth mucosal spray) ziprasidone HCl 80 mg capsule 80 mg PO BID 09/10/24 09/10/24 valacyclovir 500 mg tablet 500 mg PO DAILY 09/11/24 09/11/24 Previous Rx's ?Medication ?Instructions ?Recorded atorvastatin 20 mg tablet 20 mg PO BEDTIME 30 days #30 tabs 09/13/24 modafinil 200 mg tablet 400 mg (2 x 200 mg) PO QAM 30 days 09/13/24 #60 tabs metformin 500 mg tablet 500 mg PO BIDWMEAL 30 days #60 tabs 09/17/24 Mental Status Exam Mental Status Exam Narrative: Appearance: Casually dressed, adequate hygiene Behavior: Organized in speech/behavior and in good behavioral control; cooperative throughout the interview. Eye contact is appropriate, and there are no signs of psychomotor agitation or retardation Speech: Normal volume and prosody Thought process: Logical and goal-directed Thought content: Future oriented no self-harming thoughts; on treatment Mood: anxious Affect: Constricted SI:denies HI:denies VH/AH:intermittent AH (which is chronic) Delusions: None Insight/judgment: fair and adequate DS: Summary Hospital Course Hospital Course: 34-year-old female was a direct transfer from [facility] on 09/10/2024. She has history of bipolar disorder, swati, paranoia delusions kidney stones, adrenal disorder, pulmonary embolism, PCOS, celiac disease, dyslipidemia, hepatic steatosis, hepatomegaly, and narcolepsy. Per collateral from nursing, on 09/09/2024, she was brought to the ED via ambulance after her therapist sections her, following a virtual visit, for being disorganized and paranoid and noted she would rather than go to the hospital for higher level care suggested by her therapist. On interview with his provider and the patient's child welfare social worker, patient notes that she was wrongly sectioned by her therapist. She states that she has shared her unpleasant psychiatric inpatient hospitalization experience with her therapist. She was hospitalized between May and June 2024 for 3 weeks due to stroke-like symptoms. However, she read in her record that she was psychiatrically admitted because he would be a good experienced for her. While speaking with a therapist whom she has he has been seen twice weekly for the past few weeks, she determine the the patient needed higher level of care in the hospital. Therefore, the patient told her therapist that she would rather than be admitted again. Her therapist notified EMS and patient was brought to the ED. She was then transferred to . She denies endorsing SI/HI/AH/VH to her therapist; she currently denies those symptoms. She states that she is anxious but denies depression. She reports poor sleep related to her history of narcolepsy; her sleep average between 2-24 hours. She notes that she smokes 1 g of cocaine weekly. She denies other illicit drug use. She denies smoking cigarettes or drinking alcohol. She notes that she has been taking her medications as prescribed. Formulation/Clinical reasoning: H/o bipolar disorder: The patient's sectioned by her therapist due to being disorganized and paranoid and stating she would rather than be admitted to higher level of care. She denies endorsing SI/HI/AH/VH to a therapist and currently denies dose symptoms. She is currently anxious but not depressed. She states that she has been compliant with her medications. Will continue current home medications. Will continue to monitor patient and make changes to her medication regimen as needed. 09/13 communications writer meeting pt for first time; primary team already decided to discharge her today. Pt continues to deny any SI at all and that therapist fully misunderstood her. She continues to have AH and communications writer offered to work w/ her on unit if she wants to remain, but she wants to discharge and to work out her psychiatric medications w/ her outpt provider, feeling traumatized by being forced inpatient. Discussed pt's home meds of metformin and atorvastatin; she's been off both for several months, but reviewed hbA1C and LDL (which is only mildly elevated) and pt wants to continue with both (both of which were restarted during this admission). Relapsed with crack cocaine but trying to cut back down, now at 1/week; she does not want any help with substance abuse including programs or MAT 3 day notice due Primary team communicated to communications writer that the plan is to discharge patient today as she is at baseline and not in imminent risk of harm to self or others and appropriate to return to the community for treatment. Molding Process Technician concurs and pt's request for DC honored. Time spent discussing smoking cessation with patient: 3 to 10 minutes Status at Discharge Functional status at discharge: independent ambulation Overall status at discharge: patient is back to baseline Time Spent with Patient Time attestation: Total time managing care of this patient today __40__ minutes. Time spent: Greater than 30 minutes Specific discharge activities: Met with patient; discussed with team; charting; Discharge Plan Discharge Anticipated Discharge Date/Time: 09/13/24 11:05 Patient Disposition: Home, Self-Care Discharge Diagnosis: Schizoaffective disorder, bipolar type Referrals: Physician,Unknown J [Primary Care Provider, Medical] - 1 Week Discharge Medications: New atorvastatin 20 mg Tablet 20 mg PO BEDTIME 30 Days Qty: 30 0RF metformin 500 mg tablet 500 mg PO BIDWMEAL 30 Days Qty: 60 0RF Continued ziprasidone HCl 80 mg capsule 80 mg PO BID folic acid 400 mcg tablet 400 mcg PO DAILY glycopyrrolate 2 mg tablet 2 mg PO DAILY duloxetine 60 mg capsule,delayed release(DR/EC) 60 mg PO DAILY Biotene Moisturizing Mouth [place],Non-Aerosol MUCOUS MEMBRANE PRN (Reason: Dry Mouth) lurasidone 40 mg tablet 40 mg PO DAILY valacyclovir 500 mg Tablet 500 mg PO DAILY modafinil 200 mg tablet 400 mg PO QAM 30 Days Qty: 60 0RF Discharge Orders: Discharge Order (Routine); Ordered 09/13/24 Ordered By: Charly Wyatt Diet: Regular diet Activity on Discharge: As tolerated Stand Alone Forms: Patient Portal Discharge page Print Language: Divehi Care Plan Goals: Maintain mood and safe behaviors Take medications as prescribed Continue to pursue sobriety Practice coping skills Continue with outpatient providers and reach out to them as needed Health Concerns: Mood stability and behaviors Sobriety hx of PE Factor 5 Leiden Elevated Cholesterol Diabetes Plan of Treatment: Follow up with your PCP, psychiatric provider and other outpatient providers regarding above concerns Take medications as prescribed Assessment: Risk assessment at time of discharge:? Patient was interviewed prior to discharge and found to be fully oriented and without any SI or HI. Patient has improved insight and judgment and wants to continue treatment. Patient is not in imminent risk of harm to self or others and has a safety plan that includes presenting to the closest ER or calling 911 if feeling unsafe.? Patient has been observed closely by nursing and unit staff throughout admission; patient has not engaged in any behaviors that suggest dangerousness to self or others and has demonstrated appropriate behaviors and impulse control Discharge Date/Time: 09/13/24 11:30
== END 2024-09-13 11:30 | disposition home or self-care (01) | DRG 753 ==
PROVIDERS: Nurse Practitioner Psychiatric/Mental Health; Admitting Provider Psychiatry & Neurology Psychiatry; Visit Provider Nurse Practitioner Family
DX: F31.9 Bipolar disorder, unspecified (principal); K76.0 Fatty (change of) liver, not elsewhere classified; R45.851 Suicidal ideations; E11.9 Type 2 diabetes mellitus without complications; E78.5 Hyperlipidemia, unspecified; D68.51 Activated protein C resistance; K90.0 Celiac disease; Z79.84 Long term (current) use of oral hypoglycemic drugs; Z86.711 Personal history of pulmonary embolism; Z87.891 Personal history of nicotine dependence; Z79.899 Other long term (current) drug therapy
CPT/HCPCS: 36415; 80053; 80061; 83036; 84439; 84443

== ENCOUNTER → 2024-09-10 16:36 | Outpatient (BNV) | payer OTHER, SELFPAY | PROVIDERS: Admitting Provider Psychiatry & Neurology Psychiatry; Visit Provider Nurse Practitioner Family | DX: I26.99 Other pulmonary embolism without acute cor pulmonale (principal); D68.51 Activated protein C resistance | CPT/HCPCS: 99222 ==

== ENCOUNTER → 2024-09-10 16:36 | Outpatient (BNV) | payer OTHER, SELFPAY | PROVIDERS: Admitting Provider Psychiatry & Neurology Psychiatry; Visit Provider Nurse Practitioner Family | DX: F31.9 Bipolar disorder, unspecified (principal) | CPT/HCPCS: 90792 ==